=== PATIENT | male | born 1990 | race African-American/Black ===

== ENCOUNTER 2020-02-29 00:39 | Emergency (ER) | payer MEDICAID ==
[2020-02-29] MEDS ORDERED: Tetracaine HCl/PF 0.5% 4 ML Bottle EYELF ONE (01:05)
[2020-02-29] MEDS ORDERED: Diphtheria,Pertussis(Acell),Tetanus Vaccine 0.5 ML SDV IM ONE (01:11)
--- NOTE | 2020-02-29 01:26 | EDM.PDOC ---
ED HPI GENERAL MEDICAL PROBLEM - General Chief Complaint: Eye Problems Stated Complaint: SOMTHING IN LEFT EYE Time Seen by Provider: 02/29/20 01:11 Source of Information: Reports: Patient, Old Records, RN History Limitations: Reports: No Limitations - History of Present Illness INITIAL COMMENTS - FREE TEXT/NARRATIVE: 30 yo black male presents with L eye pain intermittently for the past couple of days like he has a FB in it. His pain is worse with blinking. No drainage, blurring, or light sensitivity. He has not seen anything in that eye. 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 some flushing) Left Eye Pain Score (Numeric/FACES): 5 - Related Data Allergies Allergy/AdvReac Type Severity Reaction Status Date / Time No Known Allergies Allergy Verified 02/29/20 00:55 Home Meds: Home Meds NK [No Known Home Meds] 02/29/20 [History] Past Medical History - Past Health History Medical/Surgical History: Denies Medical/Surgical History - Infectious Disease History Infectious Disease History: Reports: Chicken Pox Social & Family History - Family History Family Medical History: Noncontributory - Tobacco Use Smoking Status *Q: Current Every Day Smoker Years of Tobacco use: 15 Packs/Tins Daily: 0.5 - Recreational Drug Use Recreational Drug Use: No ED ROS GENERAL - Review of Systems Review Of Systems: See Below Constitutional: Reports: No Symptoms HEENT: Reports: Eye Pain (L intermittently). Denies: Eye Discharge, Vision Change Skin: Reports: No Symptoms ED EXAM GENERAL W FULL EYE - Physical Exam Exam: See Below Exam Limited By: No Limitations General Appearance: Alert, WD/WN, No Apparent Distress Eye Exam: Bilateral Eye: EOMI, Normal Inspection, PERRL, Other (no conjunctival injection) Visual Acuity (R) 20/: 25 Visual Acuity (L) 20/: 25 With Correction: No Eyelids: Bilateral: Normal Appearance Conjunctiva & Sclera: Bilateral: Normal Appearance Cornea Exam: Left: Corneal Abrasion (lower 1/4 of the cornea has superficial u ptake of fluorescein stain), Examined with Flourescein Pupillary Size: Bilateral: 3 mm Ears: Hearing Grossly Normal Nose: Normal Inspection, No Blood Throat/Mouth: Normal Voice, No Airway Compromise Head: Atraumatic, Normocephalic Neck: Normal Inspection Neurological: Alert, Oriented, CN II-XII Intact, Normal Cognition, No Motor/Sensory Deficits Psychiatric: Normal Affect, Normal Mood Skin Exam: Warm, Dry, Intact, Normal Color, No Rash ED EYE w/ Add Procedure - Eye Procedure Alcaine Drops Administered: No (tetracaine drops OS) Eye FB Removal: Other (No FB seen) Eye Irrigated w/ Saline (ccs): 60 (per RN) Course - Vital Signs Last Recorded V/S: Last Vital Signs Temp 35.3 C L 02/29/20 00:59 Pulse 61 02/29/20 00:59 Resp 16 02/29/20 00:59 BP 117/85 02/29/20 00:59 Pulse Ox 98 02/29/20 00:59 - Orders/Labs/Meds Orders: Active Orders 24 hr Category Date Time Status Vaccines to be Administered [RC] PER UNIT ROUTINE Care 02/29/20 01:11 Active Diphth,Pertuss(Acell),Tet Vac [Adacel] Med 02/29/20 01:11 Once 0.5 ml IM .ONCE ONE Meds: Medications Discontinued Medications Generic Name Dose Route Start Last Admin Trade Name Freq PRN Reason Stop Dose Admin Tetracaine HCl 1 ml 02/29/20 01:05 Tetracaine 0.5% Steri-Unit [place] EYELF 02/29/20 01:06 ASDIRECTED ONE Departure - Departure Time of Disposition: 01:40 Disposition: Home, Self-Care 01 Condition: Good Clinical Impression: Corneal abrasion, left Qualifiers: Encounter type: initial encounter Qualified Code(s): S05.02XA - Injury of conjunctiva and corneal abrasion without foreign body, left eye, initial encounter - Discharge Information *PRESCRIPTION DRUG MONITORING PROGRAM REVIEWED*: No *COPY OF PRESCRIPTION DRUG MONITORING REPORT IN PATIENT GERARDO: No Instructions: Corneal Abrasion, [id number] Referrals: PCP,None [Primary Care Provider] - Additional Instructions: No rubbing your left eye. Take ibuprofen or acetaminophen or [place] for pain relief. Recheck Sunday if not back to normal. May use moisturizing eye drops in the affected eye if you like. Sepsis Event Note (ED) - Evaluation Sepsis Screening Result: No Definite Risk - Focused Exam Vital Signs: Vital Signs Temp Pulse Resp BP Pulse Ox 02/29/20 00:59 35.3 C L 61 16 117/85 98 02/29/20 00:54 35.3 C L 61 16 117/85 98 - My Orders Last 24 Hours: My Active Orders 02/29/20 01:11 Vaccines to be Administered [RC] PER UNIT ROUTINE Diphth,Pertuss(Acell),Tet Vac [Adacel] 0.5 ml IM .ONCE ONE - Assessment/Plan Last 24 Hours: My Active Orders 02/29/20 01:11 Vaccines to be Administered [RC] PER UNIT ROUTINE Diphth,Pertuss(Acell),Tet Vac [Adacel] 0.5 ml IM .ONCE ONE
== END 2020-02-29 01:44 | disposition home or self-care (01) ==
LOC: JP.ED 00:39
DX: S05.02XA Injury of conjunctiva and corneal abrasion without foreign body, left eye, initial encounter (principal); F17.210 Nicotine dependence, cigarettes, uncomplicated; Z23 Encounter for immunization; X58.XXXA Exposure to other specified factors, initial encounter
CPT/HCPCS: 90471; 90715; 99283-25

== ENCOUNTER 2020-06-11 00:41 | Emergency (ER) | payer MEDICAID ==
--- NOTE | 2020-06-11 01:28 | EDM.PDOC ---
ED HPI GENERAL MEDICAL PROBLEM - General Chief Complaint: Back Pain or Injury Stated Complaint: BACK PAIN Time Seen by Provider: 06/11/20 01:00 Source of Information: Reports: Patient History Limitations: Reports: No Limitations - History of Present Illness INITIAL COMMENTS - FREE TEXT/NARRATIVE: 30-year-old male with right lateral back pain for the past 48 hours. 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 He is taking ibuprofen and it is not helping. No radiculopathy, neuropathy down the extremities, abdominal pain or rashes. Onset: Gradual Duration: Day(s): (Several days) Location: Reports: Back (Right side) Associated Symptoms: Reports: No Other Symptoms bilateral lower back Pain Score (Numeric/FACES): 8 back Pain Score (Numeric/FACES): 9 - Related Data Allergies Allergy/AdvReac Type Severity Reaction Status Date / Time No Known Allergies Allergy Verified 06/11/20 00:56 Home Meds: Home Meds NK [No Known Home Meds] 02/29/20 [History] Past Medical History - Past Health History Medical/Surgical History: Denies Medical/Surgical History Musculoskeletal History: Reports: Back Pain, Chronic - Infectious Disease History Infectious Disease History: Reports: Chicken Pox Social & Family History - Family History Family Medical History: Noncontributory - Tobacco Use Smoking Status *Q: Current Every Day Smoker Years of Tobacco use: 16 Packs/Tins Daily: 0.5 - Caffeine Use Caffeine Use: Reports: Energy Drinks - Recreational Drug Use Recreational Drug Use: No ED ROS GENERAL - Review of Systems Review Of Systems: See Below Constitutional: Denies: Fever, Chills Respiratory: Denies: Shortness of Breath Cardiovascular: Denies: Chest Pain GI/Abdominal: Denies: Abdominal Pain, Nausea, Vomiting Neurological: Denies: Headache, Paresthesia ED EXAM,LOWER BACK PAIN/INJURY - Physical Exam Exam: See Below Exam Limited By: No Limitations General Appearance: Alert, No Apparent Distress Respiratory/Chest: No Respiratory Distress, Lungs Clear Cardiovascular: Regular Rate, Rhythm Back Exam: Other (Some tenderness to palpation along the right parathoracic and paralumbar muscles of the lower and mid back, increased soreness with rotation to the left against resistance.) Extremities: Normal Inspection Neurological: Alert, No Motor/Sensory Deficits, Oriented x 3 Course - Vital Signs Last Recorded V/S: Last Vital Signs Temp 98.7 F 06/11/20 00:54 Pulse 71 06/11/20 00:54 Resp 16 06/11/20 00:54 BP 139/100 H 06/11/20 00:54 Pulse Ox 100 06/11/20 00:54 - Re-Assessments/Exams Free Text/Narrative Re-Assessment/Exam: 06/11/20 01:26 This patient has an isolated muscle strain in his back that should improve with time. I will give him a note to be off work tomorrow so he can rest his back through the weekend, he was given 10 hydrocodone for some extra pain control and he should increase activity as tolerated. If not improving satisfactorily by next week, rechecking for a physical therapy consultation may be worthwhile. Departure - Departure Time of Disposition: 02:12 Disposition: Home, Self-Care 01 Clinical Impression: Strain of thoracic back region - Discharge Information Instructions: Muscle Strain, [id number] Referrals: PCP,None [Primary Care Provider] - Forms: ED Department Discharge Care Plan Goals: Rest this weekend, continue with ibuprofen, and take stronger pain medication as prescribed if needed. Consider rechecking next week if not improving satisfactorily, a physical therapy consultation may be needed. Sepsis Event Note (ED) - Evaluation Sepsis Screening Result: No Definite Risk - Focused Exam Vital Signs: Vital Signs Temp Pulse Resp BP Pulse Ox 06/11/20 00:54 98.7 F 71 16 139/100 H 100
== END 2020-06-11 02:12 | disposition home or self-care (01) ==
LOC: JP.ED 00:41
DX: S29.012A Strain of muscle and tendon of back wall of thorax, initial encounter (principal); M54.5 Low back pain; F17.210 Nicotine dependence, cigarettes, uncomplicated; X58.XXXA Exposure to other specified factors, initial encounter
CPT/HCPCS: 99283

== ENCOUNTER 2020-06-15 14:08 | Emergency (ER) | payer MEDICAID ==
--- NOTE | 2020-06-15 15:26 | EDM.PDOC ---
ED HPI GENERAL MEDICAL PROBLEM - General Chief Complaint: Back Pain or Injury Stated Complaint: BACK AND RIGHT SIDE PAIN Time Seen by Provider: 06/15/20 15:10 Source of Information: Reports: Patient, Old Records, RN History Limitations: Reports: No Limitations - History of Present Illness INITIAL COMMENTS - FREE TEXT/NARRATIVE: 30 yo black male presents for back pain. Has been seen already for this first here in the ER, then in the clinic, then twice by chiropractic. Is on diclofenac and Flexeril currently and not getting complete relief. Overall, is improving. Has been going to work. Some intermittent R leg numbness. Injury came about from lifting a heavy object at work. 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) (See HPI) - Related Data Allergies Allergy/AdvReac Type Severity Reaction Status Date / Time No Known Allergies Allergy Verified 06/15/20 14:33 Home Meds: Home Meds Cyclobenzaprine [Flexeril] 10 mg PO TID PRN 06/15/20 [History] Diclofenac Sodium 50 mg PO TID 06/15/20 [History] Past Medical History - Past Health History Medical/Surgical History: Denies Medical/Surgical History Musculoskeletal History: Reports: Back Pain, Chronic - Infectious Disease History Infectious Disease History: Reports: Chicken Pox Social & Family History - Family History Family Medical History: Noncontributory - Tobacco Use Smoking Status *Q: Current Every Day Smoker Years of Tobacco use: 16 Packs/Tins Daily: 0.5 - Caffeine Use Caffeine Use: Reports: Energy Drinks - Recreational Drug Use Recreational Drug Use: No ED ROS GENERAL - Review of Systems Review Of Systems: See Below Constitutional: Reports: No Symptoms HEENT: Reports: No Symptoms Respiratory: Reports: No Symptoms Cardiovascular: Reports: No Symptoms Endocrine: Reports: No Symptoms GI/Abdominal: Reports: No Symptoms : Reports: No Symptoms Musculoskeletal: Reports: Back Pain Skin: Reports: No Symptoms Neurological: Reports: Numbness (intermittent R leg) ED EXAM,LOWER BACK PAIN/INJURY - Physical Exam Exam: See Below Exam Limited By: No Limitations General Appearance: Alert, WD/WN, No Apparent Distress Eye Exam: Bilateral Eye: Normal Inspection Ears: Normal External Exam, Normal Canal, Hearing Grossly Normal Nose: Normal Inspection, No Blood Throat/Mouth: Normal Inspection, Normal Lips, Normal Oropharynx, Normal Voice, No Airway Compromise Head: Atraumatic, Normocephalic Neck: Normal Inspection Respiratory/Chest: No Respiratory Distress, Lungs Clear, Normal Breath Sounds, No Accessory Muscle Use Cardiovascular: Regular Rate, Rhythm, No Edema Back Exam: Normal Inspection, Decreased Range of Motion, Other (pain to R lateral low back ). No: CVA Tenderness (R), CVA Tenderness (L), Vertebral Tenderness Extremities: Normal Inspection, Normal Range of Motion, Non-Tender, No Pedal Edema Neurological: Alert, Normal Mood/Affect, Normal Dorsiflexion, No Motor/Sensory Deficits, Oriented x 3 DTR - Lower Extremities: 2+: Knee (R), Knee (L) Psychiatric: Normal Affect, Normal Mood Skin Exam: Warm, Dry, Intact, Normal Color, No Rash Course - Vital Signs Last Recorded V/S: Last Vital Signs Temp 36.6 C 06/15/20 14:32 Pulse 76 06/15/20 14:32 Resp BP 159/90 H 06/15/20 14:32 Pulse Ox 99 06/15/20 14:32 Departure - Departure Time of Disposition: 15:26 Disposition: Home, Self-Care 01 Condition: Fair Clinical Impression: Low back pain Qualifiers: Chronicity: unspecified Back pain laterality: right Sciatica presence: without sciatica Qualified Code(s): M54.5 - Low back pain - Discharge Information *PRESCRIPTION DRUG MONITORING PROGRAM REVIEWED*: No *COPY OF PRESCRIPTION DRUG MONITORING REPORT IN PATIENT GERARDO: No Instructions: Back Injury Prevention, [id number] Referrals: PCP,None [Primary Care Provider] - Additional Instructions: Use Lidoderm as directed. Continue your other medications. Get established with a family doctor. Avoid heavy lifting until problem is fully resolved. Sepsis Event Note (ED) - Evaluation Sepsis Screening Result: No Definite Risk - Focused Exam Vital Signs: Vital Signs Temp Pulse BP Pulse Ox 06/15/20 14:32 36.6 C 76 159/90 H 99
== END 2020-06-15 15:15 | disposition home or self-care (01) ==
LOC: JP.ED 14:08
DX: M54.5 Low back pain (principal); F17.210 Nicotine dependence, cigarettes, uncomplicated
CPT/HCPCS: 99283

== ENCOUNTER 2020-09-02 02:33 | Emergency (ER) | payer MEDICAID ==
--- NOTE | 2020-09-02 03:16 | EDM.PDOC ---
ED HPI GENERAL MEDICAL PROBLEM - General Chief Complaint: General Stated Complaint: RECTAL PAIN Time Seen by Provider: 09/02/20 03:05 Source of Information: Reports: Patient, RN. Denies: Old Records History Limitations: Reports: No Limitations - History of Present Illness INITIAL COMMENTS - FREE TEXT/NARRATIVE: 30 yo black male presents with anal pain for a few days getting worse. He states he has not reported this to his doctor as ever since he moved to [place] he stopped seeing his doctor in [place] because it is too far away. He now uses the ER for everything because he doesn't have time to make appts. He notices now that when he wipes it is more painful and sometimes there is some pus or blood on the toilet paper. The pain is coming from up inside his anus. No fever. He is taking acetaminophen for pain. He has been able to pass stool, but this causes more pain. Onset: Gradual Onset Date: 08/30/20 Duration: Day(s):, Getting Worse Location: Reports: Other (anal area) Quality: Reports: Burning Severity: Moderate Improves with: Reports: Medication Worsens with: Reports: Other (BM's or wiping) Context: Reports: Other (See HPI) Associated Symptoms: Reports: No Other Symptoms. 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 Rectal Pain Score (Numeric/FACES): 7 - Related Data Allergies Allergy/AdvReac Type Severity Reaction Status Date / Time No Known Allergies Allergy Verified 09/02/20 02:54 Home Meds: Home Meds NK [No Known Home Meds] 09/02/20 [History] Past Medical History - Past Health History Medical/Surgical History: Denies Medical/Surgical History Musculoskeletal History: Reports: Back Pain, Chronic - Infectious Disease History Infectious Disease History: Reports: Chicken Pox Social & Family History - Family History Family Medical History: No Pertinent Family History - Tobacco Use Tobacco Use Status *Q: Heavy Tobacco User Years of Tobacco use: 16 Packs/Tins Daily: 1 - Caffeine Use Caffeine Use: Reports: Energy Drinks - Recreational Drug Use Recreational Drug Use: No ED ROS GENERAL - Review of Systems Review Of Systems: See Below Constitutional: Reports: No Symptoms HEENT: Reports: No Symptoms Respiratory: Reports: No Symptoms Cardiovascular: Reports: No Symptoms GI/Abdominal: Reports: Other (anal pain with small amts of blood or pus when he wipes) : Reports: No Symptoms Musculoskeletal: Reports: No Symptoms Skin: Reports: No Symptoms Neurological: Reports: No Symptoms ED EXAM, GENERAL - Physical Exam Exam: See Below Exam Limited By: No Limitations General Appearance: Alert, WD/WN, No Apparent Distress Eye Exam: Bilateral Eye: Normal Inspection Ears: Normal External Exam, Normal Canal, Hearing Grossly Normal Ear Exam: Bilateral Ear: Auricle Normal, Canal Normal Nose: Normal Inspection Throat/Mouth: Normal Inspection, Normal Lips, Normal Voice, No Airway Compromise Head: Atraumatic, Normocephalic Neck: Normal Inspection Respiratory/Chest: No Respiratory Distress Cardiovascular: Regular Rate, Rhythm GI/Abdominal: Other (no obvious pathology when the anal area is inspected. I attempted to do a rectal exam with a lubricated glove and was not able to enter the anal area due to the pain this caused. I did not see any evidence of blood or pus. ) Back Exam: Normal Inspection Extremities: Normal Inspection Neurological: Alert, Oriented, CN II-XII Intact, Normal Cognition, No Motor/Sensory Deficits Psychiatric: Normal Affect, Normal Mood Skin Exam: Warm, Dry, Intact, Normal Color, No Rash Course - Vital Signs Last Recorded V/S: Last Vital Signs Temp 35.9 C L 09/02/20 02:46 Pulse 63 09/02/20 02:46 Resp 14 09/02/20 02:46 BP 123/85 09/02/20 02:46 Pulse Ox 95 09/02/20 02:46 Departure - Departure Time of Disposition: 03:24 Disposition: Home, Self-Care 01 Condition: Fair Clinical Impression: Anal pain - Discharge Information *PRESCRIPTION DRUG MONITORING PROGRAM REVIEWED*: Not Applicable *COPY OF PRESCRIPTION DRUG MONITORING REPORT IN PATIENT GERARDO: Not Applicable Referrals: PCP,None [Primary Care Provider] - Forms: ED Department Discharge Additional Instructions: Take acetaminophen up to 1000 mg every 6hrs and/or ibuprofen 600 mg every 6 hrs as needed for pain relief. Take Amoxicillin every 8 hrs. Sitz baths of warm water several times/day. Put Bacitracin ointment on area several times/day. If not improving follow up in the clinic. Eat ample fluids and fiber to keep your stools soft. Sepsis Event Note (ED) - Evaluation Sepsis Screening Result: No Definite Risk - Focused Exam Vital Signs: Vital Signs Temp Pulse Resp BP Pulse Ox 09/02/20 02:46 35.9 C L 63 14 123/85 95
== END 2020-09-02 03:41 | disposition home or self-care (01) ==
LOC: JP.ED 02:33
DX: K62.89 Other specified diseases of anus and rectum (principal); F17.210 Nicotine dependence, cigarettes, uncomplicated
CPT/HCPCS: 99283

== ENCOUNTER 2021-02-05 17:43 | Emergency (ER) | payer MEDICAID, OTHER ==
--- NOTE | 2021-02-05 19:41 | EDM.PDOC ---
ED HPI GENERAL MEDICAL PROBLEM - General Chief Complaint: ENT Problem Stated Complaint: BREATHING ISSUES Time Seen by Provider: 02/05/21 19:14 Source of Information: Reports: Patient, Family, RN Notes Reviewed History Limitations: Reports: No Limitations - History of Present Illness INITIAL COMMENTS - FREE TEXT/NARRATIVE: 31-year-old gentleman presents emergency department day complaint of sore throat he states his been ill for about 24 hours he has felt feverish at home difficult to swallow no nausea vomiting seems to be breathing okay no exposures that he is aware of Throat Pain Score (Numeric/FACES): 6 - Related Data Allergies Allergy/AdvReac Type Severity Reaction Status Date / Time No Known Allergies Allergy Verified 02/05/21 19:23 Home Meds: Home Meds NK [No Known Home Meds] 09/02/20 [History] Past Medical History Musculoskeletal History: Reports: Back Pain, Chronic Neurological History: Reports: Head Trauma, Other (See Below) Other Neuro History: 1 years old cracked skull - Infectious Disease History Infectious Disease History: Reports: Chicken Pox Social & Family History - Family History Family Medical History: No Pertinent Family History - Tobacco Use Tobacco Use Status *Q: Current Every Day Tobacco User Years of Tobacco use: 21 Packs/Tins Daily: 1 - Caffeine Use Caffeine Use: Reports: Energy Drinks, Soda - Recreational Drug Use Recreational Drug Use: No ED ROS ENT - Review of Systems Review Of Systems: See Below Constitutional: Reports: Fever. Denies: Chills HEENT: Reports: Throat Pain, Throat Swelling Respiratory: Reports: No Symptoms Cardiovascular: Reports: No Symptoms GI/Abdominal: Reports: No Symptoms ED EXAM, ENT - Physical Exam Exam: See Below Exam Limited By: No Limitations General Appearance: Alert, WD/WN, No Apparent Distress Ears: Normal External Exam, Normal Canal, Hearing Grossly Normal, Normal TMs Nose: Normal Inspection, Normal Mucousa, No Blood Mouth/Throat: Normal Inspection, Normal Gums, Normal Lips, Normal Oropharynx, Normal Teeth Head: Atraumatic, Normocephalic Neck: Normal Inspection, Supple, Non-Tender, Full Range of Motion Respiratory/Chest: No Respiratory Distress, Lungs Clear, Normal Breath Sounds, No Accessory Muscle Use, Chest Non-Tender Cardiovascular: Regular Rate, Rhythm, No Murmur GI/Abdominal: Soft, Non-Tender Course - Vital Signs Last Recorded V/S: Last Vital Signs Temp 95.4 F L 02/05/21 19:23 Pulse 71 02/05/21 19:23 Resp 16 02/05/21 19:23 BP 131/83 02/05/21 19:23 Pulse Ox 100 02/05/21 19:23 - Orders/Labs/Meds Labs: Laboratory Tests 02/05/21 Range/Units 20:17 SARS CoV-2 RNA Rapid WARD Negative Departure - Departure Time of Disposition: 20:44 Disposition: Home, Self-Care 01 Condition: Fair Clinical Impression: Strep pharyngitis - Discharge Information Instructions: Strep Throat, Adult, [id number] Referrals: PCP,None [Primary Care Provider] - Forms: ED Department Discharge Additional Instructions: Take full course of antibiotics, please followup with your primary care provider in 5-7 days if not better, please call return to the emergency department with worsening of symptoms. Sepsis Event Note (ED) - Evaluation Sepsis Screening Result: No Definite Risk - Focused Exam Vital Signs: Vital Signs Temp Pulse Resp BP Pulse Ox 02/05/21 19:23 95.4 F L 71 16 131/83 100 02/05/21 19:14 95.4 F L 71 16 131/83 100 - Assessment/Plan Plan: Assessment Acuity = acute Site and laterality = streptococcal pharyngitis Etiology = group A streptococcus Manifestations = none Location of injury = Home Lab values = strep is positive, Covid negative Plan Amoxicillin 1000 mg once a day x10 days follow-up primary care 5 to 7 days if not better This note was dictated using [employer] voice recognition software please call with any questions on syntax or grammar.
== END 2021-02-05 20:50 | disposition home or self-care (01) ==
LOC: JP.ED 17:43
DX: J02.0 Streptococcal pharyngitis (principal); Z72.0 Tobacco use; Z20.822 Contact with and (suspected) exposure to COVID-19
CPT/HCPCS: 87880-QW; 99283; U0002

== ENCOUNTER 2021-03-29 22:31 | Emergency (ER) | payer MEDICAID ==
--- NOTE | 2021-03-30 00:09 | EDM.PDOC ---
ED HPI GENERAL MEDICAL PROBLEM - General Chief Complaint: Burn Stated Complaint: GREASE BURN ON L FOOT Time Seen by Provider: 03/29/21 23:57 Source of Information: Reports: Patient History Limitations: Reports: No Limitations - History of Present Illness INITIAL COMMENTS - FREE TEXT/NARRATIVE: David is a 31-year-old male presenting to the ED for evaluation of a burn to the top of his left foot. Patient was making dinner when one of his kids came up and interrupted him causing hot grease to fall onto the dorsal left foot leaving a 2 cm in diameter second-degree burn over the second metatarsal. The blister is intact. The area is tender around the burn. The patient did not apply any cooling techniques as he was trying to gather up his kids and come to the ED. He has not taken anything yet for pain. Left Foot Pain Score (Numeric/FACES): 6 - Related Data Allergies Allergy/AdvReac Type Severity Reaction Status Date / Time No Known Allergies Allergy Verified 02/05/21 19:23 Home Meds: Home Meds NK [No Known Home Meds] 09/02/20 [History] Past Medical History - Past Health History Medical/Surgical History: Denies Medical/Surgical History Musculoskeletal History: Reports: Back Pain, Chronic Neurological History: Reports: Head Trauma, Other (See Below) Other Neuro History: 1 years old cracked skull - Infectious Disease History Infectious Disease History: Reports: Chicken Pox Social & Family History - Family History Family Medical History: No Pertinent Family History - Tobacco Use Tobacco Use Status *Q: Current Every Day Tobacco User Years of Tobacco use: 20 Packs/Tins Daily: 1 - Caffeine Use Caffeine Use: Reports: Energy Drinks, Soda - Recreational Drug Use Recreational Drug Use: No ED ROS GENERAL - Review of Systems Review Of Systems: See Below Constitutional: Reports: No Symptoms Musculoskeletal: Reports: Foot Pain (Left foot pain) Skin: Reports: Burn(s) (2 cm burn on the dorsal left foot over the second metatarsal) Neurological: Reports: No Symptoms ED EXAM, BURN/SMOKE INHALATION - Physical Exam Exam: See Below Exam Limited By: No Limitations General Appearance: Alert, Anxious, Mild Distress Extremities: Other (2 cm bulla over the dorsal left foot, second metatarsal from a grease burn.) Neurological: Alert, Oriented, Normal Cognition, No Motor/Sensory Deficits Skin Exam: Wound/Incision (The area of the burn is 2 cm in diameter and has an intact bulla. The area of tenderness is another 3 to 4 cm around this. There is no break in the bowl at this time.) Course - Vital Signs Last Recorded V/S: Last Vital Signs Temp 36.6 C 03/29/21 23:29 Pulse 73 03/29/21 23:29 Resp 14 03/29/21 23:29 BP 132/88 03/29/21 23:29 Pulse Ox 97 03/29/21 23:29 - Re-Assessments/Exams Free Text/Narrative Re-Assessment/Exam: 03/30/21 00:11 the patient sustained a second-degree burn on the dorsal left foot. We will put him on a small amount of hydrocodone for pain and triple antibiotic ointment if the bulla were to rupture. We did put a dressing over it to prevent rubbing on the shoe. There is no indication at this time for an antibiotic. Patient may continue to take ibuprofen or Tylenol intermittently between the hydrocodone for pain. Departure - Departure Time of Disposition: 00:03 Disposition: Home, Self-Care 01 Clinical Impression: Second degree burn of left foot Qualifiers: Encounter type: initial encounter Qualified Code(s): T25.222A - Burn of second degree of left foot, initial encounter - Discharge Information Instructions: Second-Degree Burn, Adult Referrals: PCP,None [Primary Care Provider] - Care Plan Goals: We will send you home with a small amount of hydrocodone for pain control. Keep the wound covered to prevent rubbing on it. If the blister does break, please apply a light coating of triple antibiotic ointment to it twice daily. I have also included a work note excusing you from work for the next 2 days to allow t his to start to heal. Sepsis Event Note (ED) - Evaluation Sepsis Screening Result: No Definite Risk - Focused Exam Vital Signs: Vital Signs Temp Pulse Resp BP Pulse Ox 03/29/21 23:29 36.6 C 73 14 132/88 97 03/29/21 23:18 36.6 C 73 14 132/88 97 - Problem List & Annotations (1) Second degree burn of left foot SNOMED Code(s): 92053797680462093 Code(s): T25.222A - BURN OF SECOND DEGREE OF LEFT FOOT, INITIAL ENCOUNTER Status: Acute Priority: Low Current Visit: Yes Qualifiers: Encounter type: initial encounter Qualified Code(s): T25.222A - Burn of second degree of left foot, initial encounter - Problem List Review Problem List Initiated/Reviewed/Updated: Yes
== END 2021-03-30 00:17 | disposition home or self-care (01) ==
LOC: JP.ED 22:31
DX: T25.222A Burn of second degree of left foot, initial encounter (principal); Z72.0 Tobacco use
CPT/HCPCS: 16020; 99283-25

== ENCOUNTER 2021-04-06 16:02 | Emergency (ER) | payer MEDICAID ==
[2021-04-06] MEDS ORDERED: HYDROmorphone 1 MG/ML Syringe IM ONE (16:34)
--- NOTE | 2021-04-06 16:40 | EDM.PDOC ---
ED HPI GENERAL MEDICAL PROBLEM - General Chief Complaint: ENT Problem Stated Complaint: MULTIPLE TEETH PULLED/PAIN Time Seen by Provider: 04/06/21 16:25 Source of Information: Reports: Patient, Family, Old Records, RN History Limitations: Reports: No Limitations - History of Present Illness INITIAL COMMENTS - FREE TEXT/NARRATIVE: 31 yo black male presents with a complaint of dental pain and inability to swallow his pain pills. Had several teeth extracted today in [place] and was given an Rx for Tylenol #3. He tried to take one when he got them from the pharmacy, but cannot swallow them. He had no trouble swallowing before the extraction. No fever. Is here for eval. Onset: Today Onset Date: 04/06/21 Duration: Minutes: Location: Reports: Neck (throat) Quality: Reports: Other (dental pain only, no throat pain) Severity: Moderate (dental pain) Improves with: Reports: None Worsens with: Reports: None Context: Reports: Other (See HPI) Associated Symptoms: Reports: No Other Symptoms. 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: Reports: Other (see below) ( none) - Related Data Allergies Allergy/AdvReac Type Severity Reaction Status Date / Time No Known Allergies Allergy Verified 04/06/21 16:22 Home Meds: Home Meds Acetaminophen/Codeine [Tylenol with Codeine No.3 300MG/30MG] 1 tab PO ASDIRECTED 04/06/21 [History] Past Medical History - Past Health History Medical/Surgical History: Denies Medical/Surgical History HEENT History: Reports: Other (See Below) Musculoskeletal History: Reports: Back Pain, Chronic Neurological History: Reports: Head Trauma, Other (See Below) Other Neuro History: 1 years old cracked skull - Infectious Disease History Infectious Disease History: Reports: Chicken Pox - Past Surgical History Head Surgeries/Procedures: Reports: None HEENT Surgical History: Reports: None Neurological Surgical History: Reports: None Musculoskeletal Surgical History: Reports: None Dermatological Surgical History: Reports: None Social & Family History - Family History Family Medical History: No Pertinent Family History - Caffeine Use Caffeine Use: Reports: Energy Drinks, Soda ED ROS ENT - Review of Systems Review Of Systems: See Below Constitutional: Reports: No Symptoms HEENT: Reports: Other (mouth pain). Denies: Throat Pain Respiratory: Reports: No Symptoms Cardiovascular: Reports: No Symptoms Skin: Reports: No Symptoms ED EXAM, ENT - Physical Exam Exam: See Below Exam Limited By: No Limitations General Appearance: Alert, WD/WN, No Apparent Distress Eye Exam: Bilateral Eye: Normal Inspection Ears: Hearing Grossly Normal Nose: Normal Inspection, No Blood Mouth/Throat: Normal Lips, Normal Oropharynx, Other (packing in both sides of his mouth from today's extractions). No: Hoarse Voice, Muffled Voice, Pharynge al Erythema, Tonsillar Erythema, Tonsillar Exudates, Tonsillar Swelling, Uvular Deviation, Uvular Edema Neck: Normal Inspection. No: Lymphadenopathy (R), Lymphadenopathy (L) Respiratory/Chest: No Respiratory Distress, Lungs Clear, Normal Breath Sounds, No Accessory Muscle Use Cardiovascular: Regular Rate, Rhythm, No Edema Extremities: Normal Inspection Neurological: Alert, Oriented, CN II-XII Intact, Normal Cognition, No Motor/Sensory Deficits Psychiatric: Normal Affect, Normal Mood Skin: Warm, Dry, Intact, Normal Color, No Rash Course - Vital Signs Last Recorded V/S: Last Vital Signs Temp 36.3 C 04/06/21 16:26 Pulse 62 04/06/21 16:26 Resp 12 04/06/21 16:26 BP 125/81 04/06/21 16:26 Pulse Ox 97 04/06/21 16:26 - Orders/Labs/Meds Meds: Medications Discontinued Medications Generic Name Dose Route Start Last Admin Trade Name Eleuterio PRN Reason Stop Dose Admin Hydromorphone HCl 1 mg 04/06/21 16:34 04/06/21 16:38 Hydromorphone 1 Mg/Ml Syringe IM 04/06/21 16:35 1 mg ONETIME ONE Administration Departure - Departure Time of Disposition: 16:45 Disposition: Home, Self-Care 01 Condition: Fair Clinical Impression: Pain, dental, Swallowing impaired - Discharge Information *PRESCRIPTION DRUG MONITORING PROGRAM REVIEWED*: Not Applicable *COPY OF PRESCRIPTION DRUG MONITORING REPORT IN PATIENT GERARDO: Not Applicable Referrals: PCP,None [Primary Care Provider] - Forms: ED Department Discharge Additional Instructions: Resume your pain pills before your Dilaudid wears off. Recheck as needed. Stay on communication with your dentist and family doctor. Sepsis Event Note (ED) - Evaluation Sepsis Screening Result: No Definite Risk - Focused Exam Vital Signs: Vital Signs Temp Pulse Resp BP Pulse Ox 04/06/21 16:26 36.3 C 62 12 125/81 97 04/06/21 16:10 36.3 C 62 12 125/81 97
== END 2021-04-06 16:48 | disposition home or self-care (01) ==
LOC: JP.ED 16:02
DX: K08.89 Other specified disorders of teeth and supporting structures (principal); R13.10 Dysphagia, unspecified; R60.0 Localized edema
CPT/HCPCS: 96372; 99283; J1170

== ENCOUNTER 2021-05-28 15:13 | Emergency (ER) | payer OTHER, MEDICAID ==
--- NOTE | 2021-05-28 15:45 | EDM.PDOC ---
ED HPI GENERAL MEDICAL PROBLEM - General Chief Complaint: Eye Problems Stated Complaint: BUFFALO SAUCE IN EYE Time Seen by Provider: 05/28/21 15:15 Source of Information: Reports: Patient History Limitations: Reports: No Limitations - History of Present Illness INITIAL COMMENTS - FREE TEXT/NARRATIVE: 31-year-old male was working in the kitchen when he splashed some buffalo sauce up into his left eye. He had significant burning, he went and washed his eye out at the eye station but is still having persistent symptoms so they sent him in to be checked. The pain seems to be on the lower eyelid, vision is not blurry but he is having a hard time keeping his eye open. No other injury or concern. Onset: Sudden Duration: Hour(s): (About 1 hour ago) Location: Reports: Other (Left eye) Quality: Reports: Burning Associated Symptoms: Reports: No Other Symptoms - Related Data Allergies Allergy/AdvReac Type Severity Reaction Status Date / Time No Known Allergies Allergy Verified 05/28/21 15:22 Home Meds: Home Meds NK [No Known Home Meds] 05/28/21 [History] Past Medical History - Past Health History Medical/Surgical History: Denies Medical/Surgical History HEENT History: Reports: Other (See Below) Musculoskeletal History: Reports: Back Pain, Chronic Neurological History: Reports: Head Trauma, Other (See Below) Other Neuro History: 1 years old cracked skull - Infectious Disease History Infectious Disease History: Reports: Chicken Pox - Past Surgical History Head Surgeries/Procedures: Reports: None HEENT Surgical History: Reports: None Neurological Surgical History: Reports: None Musculoskeletal Surgical History: Reports: None Dermatological Surgical History: Reports: None Social & Family History - Family History Family Medical History: No Pertinent Family History - Tobacco Use Tobacco Use Status *Q: Current Every Day Tobacco User Years of Tobacco use: 10 Packs/Tins Daily: 0.5 - Caffeine Use Caffeine Use: Reports: Energy Drinks, Soda - Recreational Drug Use Recreational Drug Use: No ED ROS GENERAL - Review of Systems Review Of Systems: See Below Constitutional: Denies: Fever, Chills HEENT: Reports: Eye Pain. Denies: Vision Change Respiratory: Denies: Shortness of Breath GI/Abdominal: Denies: Nausea, Vomiting Neurological: Reports: No Symptoms. Denies: Headache Psychiatric: Reports: No Symptoms ED EXAM GENERAL W FULL EYE - Physical Exam Exam: See Below Exam Limited By: No Limitations General Appearance: Alert, Anxious Eye Exam: Left Eye: Conjunctival Injection (Patient has mild conjunctival injection on the left side, no other obvious findings) Eyelids: Bilateral: Normal Appearance Conjunctiva & Sclera: Bilateral: Normal Appearance (Fluorescein stain was placed on the cornea and bluelight exam was negative) Cornea Exam: Bilateral: Normal Appearance Head: Atraumatic Respiratory/Chest: No Respiratory Distress, Lungs Clear Course - Vital Signs Last Recorded V/S: Last Vital Signs Temp 97.3 F 05/28/21 15:26 Pulse 77 05/28/21 15:26 Resp 16 05/28/21 15:26 BP 121/81 05/28/21 15:26 Pulse Ox 100 05/28/21 15:26 - Re-Assessments/Exams Free Text/Narrative Re-Assessment/Exam: 05/28/21 15:44 After proparacaine drops symptoms resolved. Fluorescein stain was negative. Patient was reassured that symptoms should slowly improve today and he can recheck tomorrow if not improving satisfactorily. Departure - Departure Time of Disposition: 16:12 Disposition: Home, Self-Care 01 Clinical Impression: Chemical conjunctivitis of left eye - Discharge Information Instructions: Chemical Conjunctivitis, Adult, [id number] Referrals: PCP,None [Primary Care Provider] - Forms: ED Department Discharge Care Plan Goals: Ibuprofen may be helpful for the rest of the day, and increase activity as tolerated. Consider rechecking with optometry on Sunday if still having any symptoms. Sepsis Event Note (ED) - Evaluation Sepsis Screening Result: No Definite Risk - Focused Exam Vital Signs: Vital Signs Temp Pulse Resp BP Pulse Ox 05/28/21 15:26 97.3 F 77 16 121/81 100 05/28/21 15:22 97.3 F 77 16 121/81 100
== END 2021-05-28 16:12 | disposition home or self-care (01) ==
LOC: JP.ED 15:13
DX: H10.212 Acute toxic conjunctivitis, left eye (principal); Z72.0 Tobacco use
CPT/HCPCS: 99283

== ENCOUNTER 2022-05-08 17:08 | Emergency (ER) | payer MEDICAID ==
[2022-05-08] MEDS: Sodium Chloride 0.9% 10 ML Syringe FLUSH PRN (18:33)
[2022-05-08] MEDS: Ketorolac 30 MG/ML SDV IVPUSH ONE (18:33)
[2022-05-08 18:54] LABS: TROPONIN I HIGH SENSITIVITY 4.2 pg/mL (<=60.3)
== END 2022-05-08 19:44 | disposition home or self-care (01) ==
LOC: JP.ED 17:08
DX: S44.92XA Injury of unspecified nerve at shoulder and upper arm level, left arm, initial encounter (principal); R07.89 Other chest pain; Z20.822 Contact with and (suspected) exposure to COVID-19
CPT/HCPCS: 36415; 71045; 80048; 84484; 85025; 85379; 87635; 93005; 96374; 99285; J1885; J3490; U0002

== ENCOUNTER 2022-07-29 12:40 | Emergency (ER) | payer MEDICAID ==
[2022-07-29] MEDS ORDERED: Lidocaine 1% 5 ML VIAL INJECT ONE (14:37)
[2022-07-29] MEDS ORDERED: Proparacaine 0.5% Ophth Soln 15 ML Bottle EYELF ONE (15:13)
[2022-07-29] MEDS ORDERED: Acetaminophen/HYDROcodone 325-5 MG Tab PO ONE (15:43)
== END 2022-07-29 15:58 | disposition home or self-care (01) ==
LOC: JP.ED 12:40
DX: H00.024 Hordeolum internum left upper eyelid (principal); F17.210 Nicotine dependence, cigarettes, uncomplicated; Z79.899 Other long term (current) drug therapy
CPT/HCPCS: 67700; 99283; A9270